=== PATIENT | female | born 1945 | race Caucasian/White ===

== ENCOUNTER 2018-04-06 06:47 | Observation (INO) ==
[2018-04-06] MEDS ORDERED: Propofol Inj 500 MG/50 ML Vial ONE (07:10)
[2018-04-06] MEDS ORDERED: HYDROmorphone PF Inj 2 MG/ML Vial ONE (07:12)
[2018-04-06] MEDS ORDERED: Metoprolol Tartrate 25 MG Tablet PO ONE (07:32)
[2018-04-06] MEDS ORDERED: Chlorhexidine Gluconate 2% 1 Pack (2 Cloths) TOPICAL ONE (07:32)
[2018-04-06] MEDS ORDERED: Thrombin Topical Soln 5,000 UNIT Vial TOPICAL ONE (07:35)
[2018-04-06] MEDS ORDERED: Gelatin Size 100 Topical Foam ONE (07:35)
[2018-04-06] MEDS ORDERED: Artificial Tears Opth Oint 3.5 GM Tube ONE (08:00)
[2018-04-06] MEDS ORDERED: Sodium Chlor 0.9% Inj 500 ML IV.SIG SCH (08:00)
[2018-04-06] MEDS: ceFAZolin 2 GM Premix Inj 2 GM/50 ML PIGGYBACK IV.SIG SCH ×2 (08:15→10:39)
[2018-04-06] MEDS ORDERED: Sodium Chlor 0.9% Inj 250 ML IV.CONT ONE (08:26)
[2018-04-06] MEDS ORDERED: Sodium Chlor 0.9% Inj 500 ML IV.CONT ONE (08:26)
[2018-04-06] MEDS ORDERED: Phenylephrine/NS 1000 MCG/10ML Syringe IV.PUSH ONE (09:55)
[2018-04-06] MEDS ORDERED: fentaNYL Citrate Inj 100 MCG/2 ML Ampul ONE ×2 (10:08→14:07)
[2018-04-06] MEDS ORDERED: hydrALAZINE HCl Inj 20 MG/ML Vial IV.PUSH ONE (12:40)
[2018-04-06] MEDS ORDERED: Bisacodyl 10 MG Supp RECTAL PRN (13:21)
[2018-04-06] MEDS ORDERED: Morphine Sulfate Inj 2 MG/ML Vial IV.PUSH PRN (13:21)
[2018-04-06] MEDS ORDERED: Lidocaine 5% Patch T-DERMAL PRN (13:28)
[2018-04-06] MEDS ORDERED: Dextrose 50% in Water 50 ML Vial IV.PUSH PRN (13:35)
[2018-04-06] MEDS ORDERED: Esmolol Bolus Inj 100 MG/10 ML Vial IV.PUSH ONE (13:45)
[2018-04-06] MEDS ORDERED: (Exenatide Microspheres [Bydureon] 2 MG) SQ SCH (14:00)
--- NOTE | 2018-04-06 14:32 | P.OP ---
Preoperative Diagnosis: cervical spinal stenosis Postoperative Diagnosis: cervical spinal stenosis Date of procedure: 04/06/18 Procedure: C6-7, C7-T1 anterior cervical discectomy, interbody arthodhesis using PEEK cage filled with autologous bone graft, Simplicity plate and screws Anesthesia: FERNANDA Surgeon: Bernardo Hong MD Client Relations Associate: Charleen Fabian Pathology: none sent Operation and Findings: INDICATIONS FOR THE PROCEDURE ms Field is a 72 year-old female who presented with intractable neck pain and clinical evidence of C7 and T1 right upper extremity radiculopathy. She had disk herniations at C6-7 and C7-T1, adjacent to a area of prior fusion. She failed maximum nonsurgical management including multiple modalities of conservative treatment as well as pain management interventions by an interventional pain specialist. A surgical decompression and arthrodhesis were indicated. The [id number] details of the procedure, indications, alternatives, risks and potential complications were fully discussed with the patient. The patient fully understood. All The questions were answered. No guarantees were given. The patient voiced requesting the procedure and provided informed consents. The patient was offered the alternative of delaying the procedure and continuing with nonsurgical management. DETAILS OF THE SURGICAL PROCEDURE After the induction of general anesthesia, endotracheal intubation was performed. A Barrios catheter, bilateral MY hose, and sequential compression devices were placed and kept throughout the procedure. The patient was positioned supine on a Ej table with the head over a gel doughnut. All pressure points were carefully padded with eggcrate mattress. The eyes were tapped shut after ointment was applied by the anesthesiologist to prevent corneal abrasion. A Wei hugger was placed over the exposed lower body to maintain control of the core body temperature. The electrophysiological team placed the needles and electrodes in their proper location and baseline SSEP's and motor evoked potentials were registered. The anterior cervical region was prepped and draped in the usual sterile fashion. A localizing x-ray was performed with a C-arm. The surgical procedure was performed in several steps as follow: SURGICAL APPROACH A skin incision was made along the inferior cervical crease with a #10 blade. The incision was angled towards the sternum to allow access to the C7-T1 disk space. The dissection was carried out through the platysma exposing the sternocleidomastoid muscle. The cervical spine was approached following the fascial layers of the neck just medial to the anterior border of the sternocleidomastoid and carotid sheath by a combination of sharp and dull dissection. The tissues were abnormal and scarred, related to the previous surgery. The omohyoid muscle was identified and carefully dissected laterally and the deep cervical fascia was carefully opened. The longus colli muscles were retracted to each side of the midline. The plate at C6-C7 was exposed. Initially the locking screws were sequentially removed, and then the set screws were removed. The plate was dissected from the surrounding tissues and carefully elevated with a ligament dissector. A marker was placed at the disc space C6-C7 and a cross-table lateral x-ray performed with a C-arm. SURGICAL DECOMPRESSION In order to decompress the anterior surface of the spinal cord it was necessary to preform a microsurgical resection of the disk at C6-7, and C7-T1. At this point in the procedure the operating microscope was draped in the usual sterile fashion and brought to the field. The rest of the surgical procedure was performed using microdissection technique with the exception of the closure. Under the operative microscopic, a self-retaining retractor was placed underneath the longus colli muscle. The annulus at C6-7 and C7-T1 were incised with a #15 blade and microdiscectomy was then carefully carried out using angled curets and pituitary forceps. The disk was completely damaged. There was a large disk herniation with an extruded right foraminal fragment which was producing mass effect on the exiting right C7 and T1 nerve roots. The posterior longitudinal ligament was then elevated with an angled curet and incised with a 15 bladed knife. A careful resection of the posterior longitudinal ligament was carried out using a thin footplate 2 mm Kerrison. A nerve hook was used to assess the epidural space behind the vertebral bodies C5 and C6 in search for residual disk fragments. The margins of the posterior endplates at C6-C7, and C7 -T1 were carefully drilled and undercut with a TPS drill under high magnification. The decompression was then carried out laterally, and a bilateral foraminotomy was performed with a 2mm thin foot Kerrison. Then the vertebral bodies above and below the disk space were undercut using a 2 mm thin foot Kerrison. The epidural space was the systematically assessed with a nerve hook in search for disk. An excellent decompression was achieved in both, the dural sac and bilateral exiting nerve roots. The incision was then irrigated with a large amount of antibiotic solution INTERBODY ARTHRODHESIS In order to avoid collapse of the disk space which would result in bilateral foraminal stenosis, and to increase the chances of a successful fusion, it was necessary to place an interbody cage filled with autologous bone. At this point of the procedure, the superior and inferior endplates were then evenly decorticated with a TPS drill. The use of a drill in combination with a curette allowed me to systematically remove the cartilaginous endplates, exposing healthy bone for the interbody arthrodesis. Fourteen millimeters distraction pins were then placed at the vertebral bodies adjacent to the disk space, and gentle distraction was applied. The size of the interbody cage was then assessed using different size spacers, and a rasp was used to ensure no residual cartilage. A PEEK cage of the appropriate size was selected, and the interbody arthrodesis was then preformed by carefully impacting a PEEKs cages filled with autologous bone graft obtained from the bone fragments at the disk space C6-7 and C7-T1. An excellent position of the cage was achieved. This was was confirmed anatomically by assessing the space posterior to the implant and distance to the anterior surface of the dural sac. Radiological confirmation of the position was performed with a cross lateral xray performed with the C-arm. INTERNAL INSTRUMENTAL FIXATION Once that the interbody device was in an appropriate position, it was necessary to stabilize the spine with anterior instrumentation. Anterior instrumentation has demonstrated to increase the rate of fusion, accelerate the patient's recovery, and decrease the rate of failed interbody grafts. At this point of the procedure, the distance between the vertebral bodies was carefully measures , and a Cervical plate was brought to the field and presented in front of the vertebral bodies C6, C7 and T1. Warehouse Administrative Assistant holes were then drilled using the TPS drill, and the plate was then secured to the spine using self-drilling, self- tapping screws. Initially, the inferior right screws were inserted at C6 and at T1, followed by placement of the contralateral screws. The remaining screws were sequentially placed in a contra-lateral fashion. A proper purchase was achieved with all screws and the position of the cage, plate and screws, and alignment of the spine was assessed anatomically by direct visualization, and radiologically by performing a cross lateral xray of the cervical spine with the C-arm. CLOSURE The incision was irrigated with several liters of antibiotic solution. Hemostasis was achieved with a bipolar. The screws were locked to prevent backing out. A 7 mm Ej-Seth drain was left in the prevertebral space and externalized through a separate stab incision. The incision was then closed in layers. 3-0 Vicryl with interrupted sutures was used to close the platysma and subcutaneous tissue. The skin was closed with 4-0 running subcuticular Vicryl and Dermabond was applied. The drain was secured with a 3-0 nylon. At the end of the procedure the sponge, needle and instrument counts were all correct. The estimated blood loss was less than 50 cc. No blood transfusion was given. No intraoperative complications occurred. The patient received prophylactic antibiotics. The patient was then extubated and transferred to the recovery room in stable condition.
[2018-04-06] MEDS: Vancomycin Inj 1,000 MG in Sodium Chlor 0.9% Inj 250 ML IV.SIG SCH (15:06)
--- NOTE | 2018-04-06 16:28 | XR ---
EXAM DATE: 04/06/2018 2:18 PM EDT AGE/SEX: 72 years / Female INDICATIONS: Post-op C6-C7, C7-T1 anterior cervical fusion. CLINICAL DATA: This is the patient's subsequent encounter. Patient reports that signs and symptoms h ave been present for 1 day and indicates a pain score of Nonresponsive. MEDICAL/SURGICAL HISTORY: Non-responsive. Fusion, cervical. COMPARISON: No prior exams available for comparison. FINDINGS: Multiple intraoperative fluoroscopic images of the lower cervical spine demonstrate intradiscal disca l cage at C5-6, C6-7 and C7-T1 with anterior plate and screw fixation at C6-T1. Hardware appears ann marie sly intact and well-positioned. Vertebral body heights are maintained. Visualized sagittal alignment appears intact. CONCLUSION: 1. Intraoperative anterior cervical fixation, as above. Electronically signed by: Boyd Grey MD 04/06/2018 4:26 PM EDT
[2018-04-06] MEDS: oxyCODONE/Acetaminophen 10/325 Tablet PO PRN (17:45)
[2018-04-06] MEDS: Insulin NovoLOG Aspart Correctional Sugar Inj SQ SCH (18:09)
[2018-04-06] MEDS ORDERED: Amitriptyline 100 MG Tablet PO SCH (21:00)
[2018-04-06] MEDS ORDERED: Famotidine 20 MG Tablet PO SCH (21:00)
[2018-04-06] MEDS ORDERED: METHENAMINE HIPPURATE 1 GM PO SCH (21:00)
[2018-04-06] MEDS: Senna/Docusate Sodium 8.6/50 MG Tablet PO SCH (22:37)
[2018-04-07] MEDS: Insulin NovoLOG Aspart Correctional Sugar Inj SQ SCH ×2 (00:25→06:48)
[2018-04-07] MEDS: Vancomycin Inj 1,000 MG in Sodium Chlor 0.9% Inj 250 ML IV.SIG SCH (02:51)
[2018-04-07] MEDS: oxyCODONE/Acetaminophen 10/325 Tablet PO PRN ×2 (02:52→09:12)
[2018-04-07 08:31] VITALS: BP 163/67; PULSE 77; RESP 16; TEMP 97.5; O2SAT 91
[2018-04-07] MEDS ORDERED: Tolterodine Tartrate LA 4 MG Capsule PO SCH (09:00)
[2018-04-07] MEDS ORDERED: Non-Formulary Drug (Cranberry [Cranberry] 500 MG) PO SCH (09:00)
[2018-04-07] MEDS ORDERED: BIOTIN PO SCH (09:00)
[2018-04-07] MEDS: Senna/Docusate Sodium 8.6/50 MG Tablet PO SCH ×2 (09:11→11:11)
--- NOTE | 2018-04-07 10:53 | P.PNNS ---
Subjective Interval history: No acute events overnight. Physical Exam Vital signs: Vital Signs 04/06/18 14:00 04/06/18 14:15 04/06/18 14:30 Temperature 98.6 F Pulse Rate 93 H 95 H 93 H Respiratory Rate 20 15 13 Blood Pressure 127/60 133/63 137/63 Pulse Oximetry 93 L 95 94 L 04/06/18 14:45 04/06/18 15:00 04/06/18 15:18 Temperature Pulse Rate 91 H 92 H Respiratory Rate 13 13 Blood Pressure 139/64 145/67 H Pulse Oximetry 95 94 L 95 04/06/18 15:30 04/06/18 16:00 04/06/18 20:00 Temperature 99.1 F 98.3 F Pulse Rate 91 H 90 80 Respiratory Rate 14 15 17 Blood Pressure 146/65 H 141/66 H 147/66 H Pulse Oximetry 94 L 94 L 93 L 04/07/18 00:00 04/07/18 04:00 04/07/18 08:00 Temperature 98.5 F 97.9 F 97.5 F L Pulse Rate 83 80 77 Respiratory Rate 16 17 16 Blood Pressure 127/60 115/54 L 163/67 H Pulse Oximetry 94 L 93 L 91 L Intake & Output 04/06/18 04/07/18 04/07/18 18:59 06:59 18:59 Intake Total 4050 / 4050 730 / 730 Output Total 830 / 830 2030 / 2030 Balance 3220 / 3220 -1300 / -1300 Weight 103.3 kg Intake: IV 350 / 350 250 / 250 Vancomycin Inj 1,000 MG In NS 250 / 250 250 / 250 Inj 250 ML @ 250 mls/hr IV.SIG Q12H ABNER Rx#:[id number] Ancef 2 GM Premix Inj 2 gm In 100 / 100 50 ml @ 100 mls/hr IV.SIG TOOL [employer]KER/DESIGNER ABNER Rx#:[id number] Oral 100 / 100 480 / 480 Anesthesia Amount 3600 / 3600 Output: Urine 150 / 150 Estimated Blood Loss 50 / 50 Urine Amount (Catheter) 600 / 600 1999 Indwelling Urethral Catheter 600 / 600 1999 Wound Drainage 30 / 30 # 1 Anterior Neck JOSIE Drain 30 Other: Date of Last Bowel Movement 04/06/18 Weight On Admission 103.3 kg Narrative: Opens eyes spontaneously PERRL EOMI Alert and oriented 5/5 strength throughout - Urinary Catheter Management Indwelling Urethral Catheter Cath placed during this visit: yes Reason for continuing: Other continuation reason Insertion date: 04/06/18 Insertion time: 09:00 Assessment and Plan - Plan 72 y/o female s/p C6/7, C7/T1 ACDF on 04/06/18. Neurologically stable. JOSIE drain discontinued (output of 60). Discharge home this AM. Note: patient denies need for pain medication prescription due to pain management doctor-patient medication contract. Follow-up with Dr. Hong as previously scheduled.
--- NOTE | 2018-04-09 14:56 | P.DS ---
Date of admission: 04/06/18 13:21 Primary care physician: Shalini Jeffrey MD Brief History from admission: ms Field is a 72 year-old female who presented with intractable neck pain and clinical evidence of C7 and T1 right upper extremity radiculopathy. She had disk herniations at C6-7 and C7-T1, adjacent to a area of prior fusion. She failed maximum nonsurgical management including multiple modalities of conservative treatment as well as pain management interventions by an interventional pain specialist. A surgical decompression and arthrodhesis were indicated. DS: Medications - Discharge Medications Prescriptions: oxycodone-acetaminophen 1 tab PO Q4-6H PRN 7 Days #20 tab PRN Reason: Pain DS: Summary Hospital Course: Ms. Field underwent C6-7, C7-T1 anterior cervical discectomy, interbody arthodhesis using PEEK cage filled with autologous bone graft, Simplicity plate and screws for cervical spinal stenosis on 04/06/18. Her surgery went well without complications. Her JOSIE drain was removed on 04/07/18 and she was discharged home in stable conditions. - Time Spent with Patient Total time spent providing and/or coordinating discharge services: Less than 30 minutes - Quality: VTE Deep Vein Thrombosis/Pulmonary Embolism Present on Admission: No Results Procedures completed during hospitalization: C6-7, C7-T1 anterior cervical discectomy, interbody arthodhesis using PEEK cage filled with autologous bone graft, Simplicity plate and screws - Impressions ITS Impressions Cervical Spine X-Ray 04/06/18 00:00 CONCLUSION: 1. Intraoperative anterior cervical fixation, as above. Discharge Plan - Discharge Disposition Patient Disposition: 01 Discharge Home - Discharge Condition Condition: Good - Discharge Order Discharge Orders: Discharge Order (Routine); Ordered 04/07/18 Ordered By: Matheus Hayden - Physicians Team Primary Care Provider: Shalini Jeffrey Attending Provider: Bernardo Hong - Rxs /Orders / Referrals /Forms Prescriptions: Continue albuterol sulfate 2.5 mg /3 mL (0.083 %) Solution For Nebulization 2.5 mg INHALATION Q4H PRN (Reason: Shortness Of Breath) ipratropium bromide [Atrovent HFA] 17 mcg/actuation Hfa Aerosol Inhaler 1 puff INHALATION QID PRN (Reason: Shortness Of Breath) rosuvastatin [Crestor] 10 mg Tablet 10 mg PO DAILY telmisartan [Micardis] 80 mg Tablet 80 mg PO DAILY Changed oxycodone-acetaminophen 10-325 mg Tablet 1 tab PO Q4-6H PRN (Reason: Pain) 7 Days Qty: 20 Changed from: 1 tab oral every 6 hours as needed Discontinued apixaban [Eliquis] 2.5 mg Tablet 2.5 mg PO BID No Action adalimumab [Humira] 40 mg/0.8 mL Syringe Kit 40 mg SUB-Q Q2W amitriptyline 100 mg Tablet 100 mg PO HS biotin 10,000 mcg Capsule 1 cap PO DAILY cranberry 500 mg Capsule 500 mg PO DAILY cyanocobalamin (vitamin B-12) [Vitamin B-12] 1,000 mcg Tablet 1,000 mcg PO DAILY esomeprazole magnesium [Nexium] 40 mg Capsule,Delayed Release(Dr/Ec) 40 mg PO BID exenatide microspheres [Bydureon] 2 mg/0.65 mL Pen Injector 2 mg SUB-Q Q7D fluticasone [Allergy Relief (fluticasone)] 50 mcg/actuation Dille,Suspension 1 spray INTRANASAL DAILY glipizide 5 mg Tablet 5 mg PO HS halobetasol propionate [Ultravate] 0.05 % Cream 1 applic TOPICAL BID leflunomide 20 mg Tablet 20 mg PO DAILY lidocaine 5 % Adhesive Patch,Medicated 1 patch TOPICAL DAILY PRN (Reason: Pain) metformin 1,000 mg Tablet 1,000 mg PO BID methenamine hippurate 1 gram Tablet 1 g PO BID mirabegron [Myrbetriq] 50 mg Tablet Extended Release 24 Hr 50 mg PO DAILY [id number]-FA-vit K [Adults Multivitamin] 18 mg iron-400 mcg-25 mcg Tablet 1 tab PO DAILY ondansetron HCl [Zofran] 4 mg Tablet 8 mg PO TID PRN (Reason: Nausea) pregabalin [Lyrica] 100 mg Capsule 100 mg PO BID ranitidine HCl 150 mg Capsule 150 mg PO HS Referrals: Shalini Jeffrey MD [Primary Care Provider] - See Instructions - Discharge Instructions Patient Printed Instructions: Laminectomy (DC) Additional Instructions: Wear hard collar at all times except when showering, then wear soft collar. Maintain bandage in place until you see Dr. Hong in clinic.
[2018-04-10] MEDS ORDERED: (Adalimumab [Humira] 40 MG) SQ SCH (09:00)
== END 2018-04-07 13:30 | disposition home or self-care (01) ==
LOC: HSDI 06:47 → HSDC 06:47 → N06 16:32
PROVIDERS: ADMIT Neurological Surgery; ATTEND Neurological Surgery